=== PATIENT | male | born 1975 ===

== ENCOUNTER 2021-04-22 08:40 | Emergency (ER) | payer MEDICARE, SELFPAY ==
[2021-04-22 08:41] VITALS: BP 142/100; PULSE 87; RESP 16; TEMP 36.4; O2SAT 97; BMI 25.1
== END 2021-04-22 09:46 | disposition left against medical advice (07) ==
LOC: ED 09:22
DX: Z53.21 Procedure and treatment not carried out due to patient leaving prior to being seen by health care provider (principal)
CPT/HCPCS: 99281